=== PATIENT | male | born 1965 | race Caucasian/White ===

== ENCOUNTER 2020-12-10 04:51 | Emergency (ER) | payer BC ==
[2020-12-10] MEDS ORDERED: LISINOPRIL 10 MG TABLET ONE (05:55)
[2020-12-10] MEDS ORDERED: LISINOPRIL 10 MG TABLET PO ONE (06:00)
[2020-12-10 06:11] LABS: BASOPHILS % (AUTO) 1 % (0-1); EOSINOPHILS % (AUTO) 2 % (1-7); LYMPHOCYTES % (AUTO) 47 % (22-44); MEAN CORPUSCULAR HEMOGLOBIN 31.1 pg (27.5-34.5); MEAN CORPUSCULAR HGB CONC 35.5 g/dL (33.2-36.2); MEAN PLATELET VOLUME 6.8 fL (7.4-10.4); MONOCYTES % (AUTO) 8 % (2-9); NEUTROPHILS % (AUTO) 43 % (42-75); PLATELET COUNT 346 x10^3/uL (130-400); RED BLOOD COUNT 4.26 x10^6/uL (4.38-5.82); RED CELL DISTRIBUTION WIDTH 12.7 % (9.4-14.8)
[2020-12-10 06:16] LABS: ALANINE AMINOTRANSFERASE 30 U/L (12-78); ALBUMIN 4.1 g/dL (3.4-5.0); ANION GAP 6 mmol/L (5-15); CALCIUM 8.5 mg/dL (8.5-10.1); CHLORIDE 96 mmol/L (98-107); CREATININE 0.72 mg/dL (0.7-1.3)
--- NOTE | 2020-12-10 06:18 | NUR ---
patient main c/o high BP. patient has new stressors in his life and he also admits to taking his BP more frequently. has been on lasix daily for 3 months for HTN per his PCP. education on lisinopril reviewed with patient. patient ambulated to bathroom with steady gait. UA obtained and walked to lab by this RN. EKG completed by tech. patient tearful during assessment as he talks about his stressors happening currently. patient updated on plan of care at this time and patient agreeable. denies CP/SOB call [facility] in reach. safety maintained. will continue to monitor.
[2020-12-10 06:21] LABS: ALKALINE PHOSPHATASE 57 U/L (45-117); BILIRUBIN,TOTAL 0.2 mg/dL (0.2-1.0); TOTAL PROTEIN 7.4 g/dL (6.4-8.2)
[2020-12-10 06:22] LABS: MICROSCOPIC NOT IND
[2020-12-10] MEDS ORDERED: FURO-93 PO (06:25)
[2020-12-10 06:47] LABS: MD SCAN
--- NOTE | 2020-12-10 06:53 | NUR ---
report given to Ruthie MIRANDA and Christa MIRANDA
[2020-12-10 07:00] VITALS: BP 173/108
--- NOTE | 2020-12-10 07:00 | NUR ---
Recieved report from Mariel MIRANDA
--- NOTE | 2020-12-10 07:03 | NUR ---
Opening note: Pt sitting up in bed, watching TV, speaking in full sentences. A&O x4, denies discomfort. BP is still elevated but other VSS. Positioned for comfort and given water per request.
== END 2020-12-10 07:40 | disposition home or self-care (01) ==
LOC: ED 05:49
DX: I10 Essential (primary) hypertension (principal); R51.9 Headache, unspecified; D64.9 Anemia, unspecified; E87.1 Hypo-osmolality and hyponatremia; E78.5 Hyperlipidemia, unspecified; Z87.891 Personal history of nicotine dependence
CPT/HCPCS: 36415; 71045; 80053; 81003; 83880; 85025; 93005; 99285